=== PATIENT | female | born 2000 | race Caucasian/White ===

== ENCOUNTER → 2020-06-08 | Outpatient (CLI) | payer OTHER | LOC: RAD 10:24 | DX: M25.571 Pain in right ankle and joints of right foot (principal); M25.572 Pain in left ankle and joints of left foot; M19.072 Primary osteoarthritis, left ankle and foot; M19.071 Primary osteoarthritis, right ankle and foot; Q68.8 Other specified congenital musculoskeletal deformities | CPT/HCPCS: 73610 ==

== ENCOUNTER → 2020-09-07 | Outpatient (CLI) | payer OTHER | LOC: KOH-I 16:30 | DX: M79.671 Pain in right foot (principal); G89.29 Other chronic pain; M89.8X7 Other specified disorders of bone, ankle and foot; R26.2 Difficulty in walking, not elsewhere classified | CPT/HCPCS: 73700 ==